=== PATIENT | female | born 1970 | race African-American/Black ===

== ENCOUNTER 2019-06-08 07:04 | Emergency (ER) | payer OTHER, MEDICAID ==
[~2019-06-08] VITALS: Ht 167.6 cm; Wt 72.3 kg
[2019-06-08 07:06] VITALS: BP 132/94
--- NOTE | 2019-06-08 07:45 | NUR ---
PT WITH C/O R WRIST PAIN, CMS INTACT, PT WITH HX OF FX IN R WRIST. PT AWAITING DX, NO ADDITIONAL ORDERS AT THIS TIME
== END 2019-06-08 09:01 | disposition home or self-care (01) ==
LOC: ED 07:07
DX: S63.521A Sprain of radiocarpal joint of right wrist, initial encounter (principal); W06.XXXA Fall from bed, initial encounter; Y93.89 Activity, other specified; Y92.003 Bedroom of unspecified non-institutional (private) residence as the place of occurrence of the external cause; Y99.8 Other external cause status
CPT/HCPCS: 29260; 99283

== ENCOUNTER → 2019-07-23 | Outpatient (CLI) | payer OTHER, MEDICAID ==
[2019-07-23 10:59] LABS: BASOPHILS # (AUTO) 0.01 x10^3/uL (0-0.1); BASOPHILS % (AUTO) 0 % (0-1); EOSINOPHILS % (AUTO) 2 % (1-7); LYMPHOCYTES # (AUTO) 1.62 x10^3/uL (1-3.4); LYMPHOCYTES % (AUTO) 40 % (22-44); MD NO; MEAN CORPUSCULAR HEMOGLOBIN 21.1 pg (27.0-34.8); MEAN CORPUSCULAR HGB CONC 30.7 g/dL (32.4-35.8); MEAN CORPUSCULAR VOLUME 68.7 fL (80-100); MEAN PLATELET VOLUME 10.2 fL (7.4-10.4); MONOCYTES # (AUTO) 0.26 x10^3/uL (0.2-0.8); MONOCYTES % (AUTO) 6 % (2-9); NEUTROPHILS # (AUTO) 2.05 x10^3/uL (1.8-6.8); NEUTROPHILS % (AUTO) 51 % (42-75); PLATELET COUNT 121 x10^3/uL (130-400); RED BLOOD COUNT 5.05 x10^6/uL (3.82-5.3); RED CELL DISTRIBUTION WIDTH 18.6 % (9.6-15.2)
== END | disposition home or self-care (01) ==
LOC: LAB 10:33
PROVIDERS: ATTEND Family Medicine
DX: D72.819 Decreased white blood cell count, unspecified (principal)
CPT/HCPCS: 36415; 85025

== ENCOUNTER 2019-07-26 14:02 | Outpatient (CLI) | payer OTHER, MEDICAID | END 2019-07-26 23:59 | disposition home or self-care (01) | LOC: RAD 14:02 | PROVIDERS: ATTEND Family Medicine | DX: E04.2 Nontoxic multinodular goiter (principal) | CPT/HCPCS: 76536 ==

== ENCOUNTER → 2019-08-06 | Outpatient (CLI) | payer OTHER, MEDICAID ==
[2019-08-06 09:59] LABS: ALANINE AMINOTRANSFERASE 14 U/L (12-78); ALBUMIN 3.8 g/dL (3.4-5.0); ANION GAP 5 mmol/L (5-15); CHLORIDE 109 mmol/L (98-107)
[2019-08-06 10:09] LABS: ALKALINE PHOSPHATASE 78 U/L (45-117); BILIRUBIN,TOTAL 0.4 mg/dL (0.2-1.0); TOTAL PROTEIN 7.8 g/dL (6.4-8.2)
== END | disposition home or self-care (01) ==
LOC: LAB 09:31
PROVIDERS: ATTEND Family Medicine
DX: D69.6 Thrombocytopenia, unspecified (principal); E04.9 Nontoxic goiter, unspecified
CPT/HCPCS: 36415; 80053; 84443

== ENCOUNTER 2019-10-29 12:26 | Emergency (ER) | payer OTHER, MEDICAID ==
[~2019-10-29] VITALS: Ht 167.6 cm; Wt 75.5 kg
[2019-10-29] MEDS ORDERED: METHOCARBAMOL 750 MG TABLET ONE (12:53)
[2019-10-29] MEDS ORDERED: KETOROLAC 30 MG/1 ML ONE (12:53)
--- NOTE | 2019-10-29 13:45 | NUR ---
BREAK RN NOTE: REPORT RECEIVED FROM CARMELITA BUSTILLOS. PT REPORTS LOWER BACK PAIN 6/10 AT THSI TIME. PT REFUSING TORADOL INJECTION, CONSENTS TO TAKING ROBAXAN FOR PAIN. PT MEDICATED PER EMAR, TOLERATED WELL. BP AND SPO2 MONITORS IN PLACE. ALL RESULTS BACK , CHART UP FOR RECHECK. AWAITING MD AND DISPO.
[2019-10-29 13:47] VITALS: BP 130/64
--- NOTE | 2019-10-29 13:48 | NUR ---
DERRICK Alejandra at bedside for reassessment.
[2019-10-29] MEDS ORDERED: KETOROLAC 30 MG/1 ML IM ONE (14:00)
[2019-10-29] MEDS ORDERED: METHOCARBAMOL 750 MG TABLET PO ONE (14:00)
== END 2019-10-29 13:59 ==
LOC: ED 12:41
DX: S39.012A Strain of muscle, fascia and tendon of lower back, initial encounter (principal); Z86.39 Personal history of other endocrine, nutritional and metabolic disease; V49.49XA Driver injured in collision with other motor vehicles in traffic accident, initial encounter; Y93.89 Activity, other specified; Y92.488 Other paved roadways as the place of occurrence of the external cause; Y99.8 Other external cause status
CPT/HCPCS: 72110; 99283

== ENCOUNTER → 2019-10-30 | Outpatient (CLI) | payer OTHER, MEDICAID ==
[2019-10-30 09:38] LABS: FREE T4 (FREE THYROXINE) 1.18 ng/dL (0.76-1.46)
== END | disposition home or self-care (01) ==
LOC: LAB 07:17
PROVIDERS: ATTEND Nurse Practitioner
DX: E04.2 Nontoxic multinodular goiter (principal); E05.80 Other thyrotoxicosis without thyrotoxic crisis or storm
CPT/HCPCS: 36415; 84439; 84443; 84445; 84480

== ENCOUNTER → 2019-11-11 | Outpatient (CLI) | payer OTHER, MEDICAID ==
[~2019-11-11] MED LIST: NONE PER PT
== END | disposition home or self-care (01) ==
LOC: STAR 07:28
PROVIDERS: ATTEND Surgery
DX: Z01.818 Encounter for other preprocedural examination (principal); Z11.59 Encounter for screening for other viral diseases
CPT/HCPCS: 36415; 84432; 86800; U0001

== ENCOUNTER 2019-11-15 07:26 | Inpatient (IN) | payer OTHER, MEDICAID ==
[~2019-11-15] VITALS: Ht 167.6 cm; Wt 72.0 kg
[2019-11-15] MEDS ORDERED: LACTATED RINGERS 1,000 ML IV SCH ×3 (07:51→13:00)
[2019-11-15] MEDS ORDERED: CHLORHEXIDINE 15 ML UDC ONE (08:11)
[2019-11-15] MEDS ORDERED: CHLORHEXIDINE 15 ML UDC MM STA (08:28)
[2019-11-15] MEDS ORDERED: MIDAZOLAM 1 MG/ML, 2ML ONE (08:45)
[2019-11-15] MEDS ORDERED: FENTANYL PF 250 MCG/5ML ONE (08:46)
[2019-11-15] MEDS ORDERED: PROPOFOL 10 MG/ML, 20ML ONE (08:47)
[2019-11-15] MEDS ORDERED: DEXAMETHASONE 4 MG/ML, 1ML ONE (08:47)
[2019-11-15] MEDS ORDERED: SUCCINYLCHOLINE 20 MG/ML, 10ML ONE (08:47)
[2019-11-15] MEDS ORDERED: ONDANSETRON 2MG/ML, 2ML ONE ×2 (08:47→12:12)
[2019-11-15] MEDS ORDERED: PROMETHAZINE 25 MG/ML, 1ML IVPush PRN (09:30)
[2019-11-15] MEDS ORDERED: OXYcodone 5 MG/5 ML ORAL.SOL UDC PO PRN (09:30)
[2019-11-15] MEDS ORDERED: morphine SULFATE 10 MG/ML, 1ML IVPush PRN (09:30)
[2019-11-15] MEDS ORDERED: ACETAMINOPHEN 325 MG TABLET PO PRN (09:30)
[2019-11-15] MEDS ORDERED: hydrALAzine 20 MG/ML, 1ML IV PRN (09:30)
[2019-11-15] MEDS ORDERED: HALOPERIDOL 5 MG/ML IV PRN (09:30)
[2019-11-15] MEDS ORDERED: MEPERIDINE/PF 25MG/0.5ML IVPush PRN (09:30)
[2019-11-15] MEDS ORDERED: HYDROmorphone 1 MG/ML, 1ML INJ IVPush PRN (09:30)
[2019-11-15] MEDS ORDERED: LABETALOL 5MG/ML, 20ML IV PRN (09:30)
[2019-11-15] MEDS ORDERED: FENTANYL PF 100 MCG/2ML ONE ×2 (09:47→11:12)
[2019-11-15] MEDS ORDERED: OXYcodone 5 MG/5 ML ORAL.SOL UDC ONE (11:12)
[2019-11-15] MEDS: FENTANYL PF 100 MCG/2ML IV PRN ×3 (11:15→11:45)
[2019-11-15] MEDS ORDERED: ACETAMINOPHEN 650 MG/20.3 ML UDC ONE (11:45)
[2019-11-15] MEDS ORDERED: PROMETHAZINE 25 MG/ML, 1ML ONE (11:51)
[2019-11-15] MEDS ORDERED: ONDANSETRON 2MG/ML, 2ML IVPush PRN (12:30)
[2019-11-15 14:00] VITALS: BP 101/59
[2019-11-15] MEDS: morphine SULFATE 10 MG/ML, 1ML IV PRN ×2 (15:21→19:48)
[2019-11-15] MEDS: LACTATED RINGERS 1,000 ML IV SCH ×2 (15:28→23:37)
[2019-11-15] MEDS ORDERED: ONDANSETRON 2MG/ML, 2ML IV PRN (18:00)
[2019-11-15 19:04] LABS: ALBUMIN 3.5 g/dL (3.4-5.0); CALCIUM 8.9 mg/dL (8.5-10.1)
[2019-11-15 19:59] VITALS: BP 106/59
[2019-11-15 23:41] VITALS: BP 117/74
[2019-11-16 01:41] LABS: ALBUMIN 3.5 g/dL (3.4-5.0); CALCIUM 8.7 mg/dL (8.5-10.1)
[2019-11-16] MEDS: HYDROcodone/APAP 5/325 TABLET PO PRN ×3 (03:06→09:32)
[2019-11-16 04:17] VITALS: BP 109/70
[2019-11-16 06:19] LABS: ALBUMIN 3.4 g/dL (3.4-5.0); CALCIUM 8.7 mg/dL (8.5-10.1)
[2019-11-16 08:00] VITALS: BP 118/73
[2019-11-16] MEDS ORDERED: HYDR-3240 PO (08:37)
[2019-11-16] MEDS ORDERED: LEVO125T PO (08:37)
== END 2019-11-16 09:40 | disposition home or self-care (01) | DRG 627 ==
LOC: OUT 07:26 → 4NE 12:30 → OUT 12:44
PROVIDERS: ADMIT Surgery; ATTEND Surgery
PROC: 0GTK0ZZ Resection of Thyroid Gland, Open Approach (ICD-10-PCS; principal; 2019-11-15)
DX: E04.0 Nontoxic diffuse goiter (principal)
CPT/HCPCS: 36415; 82040; 82310; 88307; G0378; J1100; J2250; J2405; J2550; J2704; J3010; J0330; J2270; J7120

== ENCOUNTER 2019-11-20 09:05 | Outpatient (CLI) | payer OTHER, MEDICAID ==
[~2019-11-20 09:05] MED LIST changes: +HYDR-3240 PO; +LEVO125T PO
== END 2019-11-20 23:59 | disposition home or self-care (01) ==
LOC: LAB 09:05
PROVIDERS: ATTEND Surgery
DX: E83.51 Hypocalcemia (principal)
CPT/HCPCS: 36415; 82310

== ENCOUNTER → 2019-12-24 | Outpatient (CLI) | payer OTHER, MEDICAID ==
[2019-12-24 12:39] LABS: BASOPHILS # (AUTO) 0.02 x10^3/uL (0-0.1); BASOPHILS % (AUTO) 1 % (0-1); EOSINOPHILS # (AUTO) 0.08 x10^3/uL (0-0.4); EOSINOPHILS % (AUTO) 3 % (1-7); LYMPHOCYTES # (AUTO) 1.35 x10^3/uL (1-3.4); LYMPHOCYTES % (AUTO) 40 % (22-44); MD NO; MEAN CORPUSCULAR HEMOGLOBIN 24.7 pg (27.0-34.8); MEAN CORPUSCULAR HGB CONC 31.4 g/dL (32.4-35.8); MEAN CORPUSCULAR VOLUME 78.5 fL (80-100); MEAN PLATELET VOLUME 8.9 fL (7.4-10.4); MONOCYTES % (AUTO) 9 % (2-9); NEUTROPHILS # (AUTO) 1.65 x10^3/uL (1.8-6.8); NEUTROPHILS % (AUTO) 48 % (42-75); PLATELET COUNT 148 x10^3/uL (130-400); RED BLOOD COUNT 4.79 x10^6/uL (3.82-5.3)
== END | disposition home or self-care (01) ==
LOC: LAB 11:55
PROVIDERS: ATTEND Nurse Practitioner Family
DX: D50.9 Iron deficiency anemia, unspecified (principal)
CPT/HCPCS: 36415; 82728; 83540; 83550; 85025

== ENCOUNTER → 2019-12-24 | Outpatient (CLI) | payer OTHER, MEDICAID | END | disposition home or self-care (01) | LOC: LAB 11:52 | PROVIDERS: ATTEND Surgery | DX: E03.9 Hypothyroidism, unspecified (principal) | CPT/HCPCS: 84443 ==

== ENCOUNTER → 2020-02-06 | Outpatient (CLI) | payer OTHER, MEDICAID ==
[2020-02-06 07:42] LABS: ALANINE AMINOTRANSFERASE 23 U/L (12-78); ALBUMIN 3.8 g/dL (3.4-5.0); ANION GAP 6 mmol/L (5-15); CALCIUM 8.4 mg/dL (8.5-10.1); CHLORIDE 107 mmol/L (98-107); CREATININE 0.83 mg/dL (0.55-1.02)
[2020-02-06 07:51] LABS: ALKALINE PHOSPHATASE 84 U/L (45-117); BILIRUBIN,TOTAL 0.4 mg/dL (0.2-1.0); CHOL/HDL RATIO 3.9; CHOLESTEROL, TOTAL 255 mg/dL (140-239); FREE T4 (FREE THYROXINE) 0.91 ng/dL (0.76-1.46); HDL CHOL % 25 % (28-40); HDL CHOLESTEROL (DIRECT) 65 mg/dL (40-60); LDL CHOLESTEROL,CALCULATED 157 mg/dL (54-169); LDL/HDL RATIO 2.4 (0.5-3.0); TOTAL PROTEIN 7.8 g/dL (6.4-8.2); TRIGLYCERIDES 167 mg/dL (50-200); VLDL CHOLESTEROL 33 mg/dL (0-25)
== END | disposition home or self-care (01) ==
LOC: LAB 07:16
PROVIDERS: ATTEND Surgery
DX: I10 Essential (primary) hypertension (principal); E83.51 Hypocalcemia; E89.0 Postprocedural hypothyroidism
CPT/HCPCS: 36415; 80053; 80061; 82043; 84439; 84443; 86376; 86800

== ENCOUNTER → 2020-02-24 | Outpatient (CLI) | payer OTHER, MEDICAID | END | disposition home or self-care (01) | LOC: CFH 09:08 | PROVIDERS: ATTEND Family Medicine | DX: Z12.31 Encounter for screening mammogram for malignant neoplasm of breast (principal) | CPT/HCPCS: 77067 ==

== ENCOUNTER → 2020-03-06 | Outpatient (CLI) | payer OTHER, MEDICAID ==
[2020-03-06 11:46] LABS: HCT (SEDRATE) 42.4 % (34.6-47.8)
[2020-03-06 11:52] LABS: CHLORIDE 110 mmol/L (98-107)
[2020-03-06 11:59] LABS: BASOPHILS # (AUTO) 0.02 x10^3/uL (0-0.1); BASOPHILS % (AUTO) 1 % (0-1); EOSINOPHILS # (AUTO) 0.05 x10^3/uL (0-0.4); EOSINOPHILS % (AUTO) 1 % (1-7); LYMPHOCYTES # (AUTO) 1.39 x10^3/uL (1-3.4); LYMPHOCYTES % (AUTO) 31 % (22-44); MD SCAN; MEAN CORPUSCULAR HEMOGLOBIN 27.7 pg (27.0-34.8); MEAN CORPUSCULAR HGB CONC 32.2 g/dL (32.4-35.8); MEAN CORPUSCULAR VOLUME 86.2 fL (80-100); MEAN PLATELET VOLUME 11.1 fL (7.4-10.4); MONOCYTES # (AUTO) 0.37 x10^3/uL (0.2-0.8); MONOCYTES % (AUTO) 8 % (2-9); NEUTROPHILS # (AUTO) 2.67 x10^3/uL (1.8-6.8); NEUTROPHILS % (AUTO) 59 % (42-75); PLATELET COUNT 58 x10^3/uL (130-400); RED BLOOD COUNT 4.92 x10^6/uL (3.82-5.3); RED CELL DISTRIBUTION WIDTH 24.6 % (9.6-15.2)
[2020-03-06 12:21] LABS: % IRON SATURATION 33 % (20-55); ALANINE AMINOTRANSFERASE 22 U/L (12-78); ALKALINE PHOSPHATASE 78 U/L (45-117); ANION GAP 7 mmol/L (5-15); BILIRUBIN,TOTAL 0.5 mg/dL (0.2-1.0); CALCIUM 8.9 mg/dL (8.5-10.1); CREATININE 0.78 mg/dL (0.55-1.02); FOLATE LEVEL 9.9 ng/mL (3.1-17.5); IRON LEVEL 83 mcg/dL (50-170); TOTAL IRON BINDING CAPACITY 255 mcg/dL (250-450); TOTAL PROTEIN 7.6 g/dL (6.4-8.2)
== END | disposition home or self-care (01) ==
LOC: LAB 11:20
PROVIDERS: ATTEND Internal Medicine
DX: D50.9 Iron deficiency anemia, unspecified (principal)
CPT/HCPCS: 36415; 80053; 82607; 82728; 82746; 83540; 83550; 83615; 85025; 85384; 85651; 86038; 86430; 86704; 86706; 86803; 87340

== ENCOUNTER 2020-03-24 17:14 | Outpatient (CLI) | payer OTHER, MEDICAID | END 2020-03-24 23:59 | disposition home or self-care (01) | LOC: LAB 17:14 | PROVIDERS: ATTEND Surgery | DX: E83.51 Hypocalcemia (principal) | CPT/HCPCS: 36415; 82310 ==

== ENCOUNTER 2020-04-04 06:40 | Outpatient (CLI) | payer OTHER, MEDICAID ==
[2020-04-04 07:24] LABS: BASOPHILS % (AUTO) 1 % (0-1); EOSINOPHILS % (AUTO) 2 % (1-7); LYMPHOCYTES % (AUTO) 40 % (22-44); MEAN CORPUSCULAR HEMOGLOBIN 28.8 pg (27.0-34.8); MEAN CORPUSCULAR HGB CONC 33.1 g/dL (32.4-35.8); MEAN PLATELET VOLUME 10.5 fL (7.4-10.4); MONOCYTES % (AUTO) 6 % (2-9); NEUTROPHILS % (AUTO) 51 % (42-75); PLATELET COUNT 75 x10^3/uL (130-400); RED BLOOD COUNT 5.39 x10^6/uL (3.82-5.3); RED CELL DISTRIBUTION WIDTH 22.9 % (9.6-15.2)
[2020-04-04 07:33] LABS: ALANINE AMINOTRANSFERASE 19 U/L (12-78); ALBUMIN 4.1 g/dL (3.4-5.0); ANION GAP 5 mmol/L (5-15); CHLORIDE 113 mmol/L (98-107); CREATININE 0.98 mg/dL (0.55-1.02)
[2020-04-04 07:41] LABS: ALKALINE PHOSPHATASE 99 U/L (45-117); BILIRUBIN,TOTAL 0.4 mg/dL (0.2-1.0); CHOL/HDL RATIO 4.5; CHOLESTEROL, TOTAL 326 mg/dL (140-239); FREE T4 (FREE THYROXINE) 0.33 ng/dL (0.76-1.46); HDL CHOL % 22 % (28-40); HDL CHOLESTEROL (DIRECT) 73 mg/dL (40-60); LDL CHOLESTEROL,CALCULATED 215 mg/dL (54-169); LDL/HDL RATIO 2.9 (0.5-3.0); TRIGLYCERIDES 191 mg/dL (50-200); VLDL CHOLESTEROL 38 mg/dL (0-25)
[2020-04-04 08:38] LABS: MD SCAN
== END 2020-04-04 23:59 | disposition home or self-care (01) ==
LOC: LAB 06:40
PROVIDERS: ATTEND Nurse Practitioner
DX: I10 Essential (primary) hypertension (principal); D72.819 Decreased white blood cell count, unspecified; E03.9 Hypothyroidism, unspecified
CPT/HCPCS: 36415; 80053; 80061; 84439; 84443; 85025; 86376

== ENCOUNTER → 2020-07-15 | Outpatient (CLI) | payer OTHER, MEDICAID ==
[~2020-07-15] MED LIST changes: +HYDR-1067 PO; -HYDR-3240 PO
[2020-07-15 08:55] LABS: BASOPHILS % (AUTO) 1 % (0-1); EOSINOPHILS % (AUTO) 1 % (1-7); LYMPHOCYTES % (AUTO) 38 % (22-44); MEAN CORPUSCULAR HEMOGLOBIN 32.8 pg (27.0-34.8); MEAN CORPUSCULAR HGB CONC 34.2 g/dL (32.4-35.8); MEAN PLATELET VOLUME 9.3 fL (7.4-10.4); MONOCYTES % (AUTO) 8 % (2-9); NEUTROPHILS % (AUTO) 52 % (42-75); PLATELET COUNT 103 x10^3/uL (130-400); RED CELL DISTRIBUTION WIDTH 12.7 % (9.6-15.2)
[2020-07-15 08:59] LABS: MD NO
[2020-07-15 09:41] LABS: FREE T4 (FREE THYROXINE) 0.34 ng/dL (0.76-1.46)
[2020-07-16 15:05] LABS: ANA SCREEN POSITIVE (Negative); ANTI-NUCLEAR ANTIBODY PATTERN SPECKLED
== END | disposition home or self-care (01) ==
LOC: LAB 08:06
PROVIDERS: ATTEND Internal Medicine
DX: E89.0 Postprocedural hypothyroidism (principal); D69.6 Thrombocytopenia, unspecified; D50.9 Iron deficiency anemia, unspecified; Z79.899 Other long term (current) drug therapy
CPT/HCPCS: 36415; 82728; 83540; 83550; 84439; 84443; 85025; 86038; 86039

== ENCOUNTER → 2020-09-02 | Outpatient (CLI) | payer OTHER, MEDICAID ==
[2020-09-02 13:42] LABS: BASOPHILS % (AUTO) 1 % (0-1); EOSINOPHILS % (AUTO) 2 % (1-7); LYMPHOCYTES % (AUTO) 34 % (22-44); MEAN CORPUSCULAR HGB CONC 33.8 g/dL (32.4-35.8); MEAN PLATELET VOLUME 9.9 fL (7.4-10.4); MONOCYTES % (AUTO) 11 % (2-9); NEUTROPHILS % (AUTO) 53 % (42-75); PLATELET COUNT 103 x10^3/uL (130-400); RED BLOOD COUNT 4.38 x10^6/uL (3.82-5.3); RED CELL DISTRIBUTION WIDTH 12.3 % (9.6-15.2)
[2020-09-02 13:43] LABS: MD NO
[2020-09-02 13:52] LABS: ALBUMIN 3.9 g/dL (3.4-5.0); ANION GAP 5 mmol/L (5-15); CALCIUM 9.5 mg/dL (8.5-10.1); CHLORIDE 109 mmol/L (98-107)
[2020-09-02 13:57] LABS: % IRON SATURATION 31 % (20-55); ALANINE AMINOTRANSFERASE 25 U/L (12-78); ALKALINE PHOSPHATASE 76 U/L (45-117); BILIRUBIN,TOTAL 0.5 mg/dL (0.2-1.0); CREATININE 0.86 mg/dL (0.55-1.02); IRON LEVEL 79 mcg/dL (50-170); TOTAL IRON BINDING CAPACITY 259 mcg/dL (250-450); TOTAL PROTEIN 7.7 g/dL (6.4-8.2)
[2020-09-02 14:56] LABS: FREE T4 (FREE THYROXINE) 1.57 ng/dL (0.76-1.46)
== END | disposition home or self-care (01) ==
LOC: LAB 13:22
PROVIDERS: ATTEND Internal Medicine
DX: E89.0 Postprocedural hypothyroidism (principal); D50.9 Iron deficiency anemia, unspecified; D69.6 Thrombocytopenia, unspecified; Z79.899 Other long term (current) drug therapy
CPT/HCPCS: 36415; 80053; 82728; 83540; 83550; 84439; 84443; 84445; 85025

== ENCOUNTER → 2020-09-15 | Outpatient (CLI) | payer OTHER, MEDICAID ==
[2020-09-15 09:23] LABS: BASOPHILS % (AUTO) 1 % (0-1); EOSINOPHILS % (AUTO) 2 % (1-7); LYMPHOCYTES % (AUTO) 31 % (22-44); MEAN CORPUSCULAR HEMOGLOBIN 32.1 pg (27.0-34.8); MEAN CORPUSCULAR HGB CONC 34.1 g/dL (32.4-35.8); MEAN PLATELET VOLUME 10.2 fL (7.4-10.4); MONOCYTES % (AUTO) 10 % (2-9); NEUTROPHILS % (AUTO) 57 % (42-75); PLATELET COUNT 86 x10^3/uL (130-400); RED BLOOD COUNT 4.42 x10^6/uL (3.82-5.3); RED CELL DISTRIBUTION WIDTH 12.4 % (9.6-15.2)
[2020-09-15 09:24] LABS: MD NO
[2020-09-15 09:33] LABS: ALBUMIN 3.9 g/dL (3.4-5.0); ANION GAP 5 mmol/L (5-15); CALCIUM 9.3 mg/dL (8.5-10.1); CHLORIDE 107 mmol/L (98-107); INTERNATIONAL NORMALIZED RATIO 1.07 (0.93-1.1); PROTHROMBIN TIME 11.4 Seconds (9.6-11.5)
[2020-09-15 09:34] LABS: MICROSCOPIC INDICATED
[2020-09-15 09:38] LABS: ALANINE AMINOTRANSFERASE 24 U/L (12-78); ALKALINE PHOSPHATASE 69 U/L (45-117); BILIRUBIN,TOTAL 0.5 mg/dL (0.2-1.0); CREATININE 0.74 mg/dL (0.55-1.02); TOTAL PROTEIN 7.5 g/dL (6.4-8.2)
== END | disposition home or self-care (01) ==
LOC: LAB 09:00
PROVIDERS: ATTEND Family Medicine
DX: Z01.818 Encounter for other preprocedural examination (principal)
CPT/HCPCS: 36415; 71046; 80053; 81001; 84702; 85025; 85610; 85730; 87806; G0475

== ENCOUNTER 2020-10-01 00:13 | Emergency (ER) | payer OTHER, MEDICAID ==
[~2020-10-01] VITALS: Ht 167.6 cm; Wt 81.2 kg
[~2020-10-01 00:13] MED LIST changes: -HYDR-1067 PO; +HYDR-2214 PO
[2020-10-01 00:15] VITALS: BP 126/83
== END 2020-10-01 00:56 | disposition home or self-care (01) ==
LOC: ED 00:36
DX: K02.9 Dental caries, unspecified (principal); Z86.39 Personal history of other endocrine, nutritional and metabolic disease
CPT/HCPCS: 99283

== ENCOUNTER → 2020-10-07 | Outpatient (CLI) | payer OTHER, MEDICAID ==
[~2020-10-07] MED LIST changes: +HYDR-1067 PO; -HYDR-2214 PO
== END | disposition home or self-care (01) ==
LOC: LAB 10:36
PROVIDERS: ATTEND Family Medicine
DX: Z01.818 Encounter for other preprocedural examination (principal)
CPT/HCPCS: 36415; 85049

== ENCOUNTER 2020-10-08 11:29 | Outpatient (CLI) | payer OTHER, MEDICAID ==
[~2020-10-08 11:29] MED LIST changes: -HYDR-1067 PO; +HYDR-2214 PO
[2020-10-08 11:53] LABS: T4 (THYROXINE) 10.4 mcg/dL (4.8-13.9)
== END 2020-10-08 23:59 | disposition home or self-care (01) ==
LOC: LAB 11:29
PROVIDERS: ATTEND Family Medicine
DX: Z01.818 Encounter for other preprocedural examination (principal)
CPT/HCPCS: 36415; 84436; 84443; 84480

== ENCOUNTER → 2020-12-29 | Outpatient (CLI) | payer OTHER, MEDICAID ==
[2020-12-29 13:04] LABS: ALANINE AMINOTRANSFERASE 25 U/L (12-78); ALBUMIN 3.9 g/dL (3.4-5.0); ANION GAP 5 mmol/L (5-15); CALCIUM 8.9 mg/dL (8.5-10.1); CHLORIDE 106 mmol/L (98-107); CREATININE 0.77 mg/dL (0.55-1.02)
[2020-12-29 13:05] LABS: INTERNATIONAL NORMALIZED RATIO 1.04 (0.93-1.1); PROTHROMBIN TIME 11.1 Seconds (9.6-11.5)
[2020-12-29 13:08] LABS: ALKALINE PHOSPHATASE 86 U/L (45-117); BILIRUBIN,TOTAL 0.5 mg/dL (0.2-1.0); FREE T4 (FREE THYROXINE) 1.17 ng/dL (0.76-1.46); MICROSCOPIC AUTO; TOTAL PROTEIN 7.9 g/dL (6.4-8.2)
[2020-12-29 13:11] LABS: BASOPHILS % (AUTO) 1 % (0-1); EOSINOPHILS % (AUTO) 3 % (1-7); LYMPHOCYTES % (AUTO) 43 % (22-44); MEAN CORPUSCULAR HEMOGLOBIN 31.2 pg (27.0-34.8); MEAN CORPUSCULAR HGB CONC 34.3 g/dL (32.4-35.8); MEAN PLATELET VOLUME 10.4 fL (7.4-10.4); MONOCYTES % (AUTO) 9 % (2-9); NEUTROPHILS % (AUTO) 45 % (42-75); PLATELET COUNT 93 x10^3/uL (130-400); RED BLOOD COUNT 4.69 x10^6/uL (3.82-5.3)
== END | disposition home or self-care (01) ==
LOC: LAB 12:30
PROVIDERS: ATTEND Nurse Practitioner
DX: Z01.812 Encounter for preprocedural laboratory examination (principal); E89.0 Postprocedural hypothyroidism; R94.31 Abnormal electrocardiogram [ECG] [EKG]
CPT/HCPCS: 36415; 71046; 80053; 81001; 84439; 84443; 84703; 85025; 85610; 85730; 87086; 87806; 93005; G0475

== ENCOUNTER 2021-02-23 18:13 | Emergency (ER) | payer OTHER, MEDICAID ==
--- NOTE | 2021-02-23 19:02 | NUR ---
nil at this time
--- NOTE | 2021-02-23 19:11 | NUR ---
nil x 2
--- NOTE | 2021-02-23 19:46 | NUR ---
nil x 3
== END 2021-02-23 20:28 | disposition left against medical advice (07) ==
LOC: ED 18:45
DX: Z53.21 Procedure and treatment not carried out due to patient leaving prior to being seen by health care provider (principal)

== ENCOUNTER 2021-03-11 12:01 | Outpatient (CLI) | payer OTHER, MEDICAID ==
[2021-03-11 15:50] LABS: BASOPHILS % (AUTO) 1 % (0-1); EOSINOPHILS % (AUTO) 1 % (1-7); LYMPHOCYTES % (AUTO) 39 % (22-44); MEAN CORPUSCULAR HGB CONC 33.6 g/dL (32.4-35.8); MONOCYTES % (AUTO) 8 % (2-9); NEUTROPHILS % (AUTO) 51 % (42-75); PLATELET COUNT 91 x10^3/uL (130-400); RED BLOOD COUNT 4.51 x10^6/uL (3.82-5.3); RED CELL DISTRIBUTION WIDTH 13.1 % (9.6-15.2)
[2021-03-11 16:02] LABS: ALBUMIN 3.8 g/dL (3.4-5.0); ANION GAP 5 mmol/L (5-15); CALCIUM 9.7 mg/dL (8.5-10.1); CHLORIDE 107 mmol/L (98-107)
[2021-03-11 16:10] LABS: % IRON SATURATION 27 % (20-55); ALANINE AMINOTRANSFERASE 22 U/L (12-78); ALKALINE PHOSPHATASE 86 U/L (45-117); BILIRUBIN,TOTAL 0.5 mg/dL (0.2-1.0); CREATININE 0.85 mg/dL (0.55-1.02); IRON LEVEL 63 mcg/dL (50-170); TOTAL IRON BINDING CAPACITY 236 mcg/dL (250-450); TOTAL PROTEIN 7.6 g/dL (6.4-8.2)
== END 2021-03-11 23:59 | disposition home or self-care (01) ==
LOC: LAB 12:01
PROVIDERS: ATTEND Internal Medicine
DX: D69.6 Thrombocytopenia, unspecified (principal); D50.9 Iron deficiency anemia, unspecified; Z79.899 Other long term (current) drug therapy
CPT/HCPCS: 36415; 80053; 82728; 83540; 83550; 83615; 85025; 85384